=== PATIENT | female | born 1985 | race Caucasian/White ===

== ENCOUNTER 2016-12-24 20:37 | Inpatient (IN) | payer BC ==
[2016-12-24] MEDS: RINGERS SOLUTION,LACTATED 1,000 ML IV ONE (21:50)
[2016-12-24] MEDS ORDERED: LIDOCAINE HCL 50 ML VIAL PERI PRN (22:16)
[2016-12-24] MEDS ORDERED: OXYTOCIN/DEXTROSE 5%-WATER 30 UNITS/500 ML BAG IV ONE (22:16)
[2016-12-24] MEDS ORDERED: ONDANSETRON HCL/PF 2 MG/ML VIAL IV PRN (22:32)
[2016-12-24] MEDS ORDERED: NALOXONE HCL 1 MG/1 ML SYRG IV PRN (22:32)
[2016-12-24] MEDS ORDERED: BUPIVACAINE HCL/PF 30 ML VIAL EP ONE (22:32)
[2016-12-24] MEDS ORDERED: BUPIVACAINE HCL/0.9 % NACL/PF 250 ML EP PRN (22:32)
[2016-12-24] MEDS: DEXTROSE 5%-LACTATED RINGERS 1,000 ML IV PRN (22:56)
--- NOTE | 2016-12-24 23:23 | OR ---
Anesthesia Procedure Note - Anesthesia Procedure Note Date of Service: 12/24/16 Narrative: Vital Signs - Last Taken Temp 36.3 C L 12/24/16 22:58 Pulse 81 12/24/16 22:58 Resp 18 12/24/16 22:58 BP 122/72 12/24/16 22:58 Pulse Ox 100 12/24/16 22:58 12/24/16 23:22 ANESTHESIA PROCEDURE NOTE Date of Procedure: 12/24/2016. Time of procedure: 2300. Performed by: Héctor Tsang CRNA Machine Hoop Maker: None. Preprocedure diagnosis: Active labor. Post procedure diagnosis: Same. Procedure: Insertion of labor epidural. Indications: The patient is a 31 -year-old female in active labor requesting labor epidural for pain management. Findings: See below. Details of the procedure: The patient was placed in a sitting position. DuraPrep as well as Betadine swabs 3 was applied to the patient's back. Patient was then draped in a sterile fashion. Lidocaine 1% was infiltrated to the skin and subcutaneous tissues at the level of the L3 4 interspace. The epidural space was identified using a 18-gauge Tuohy needle with loss-of- resistance technique. Epidural catheter was inserted to a depth of 12 centimeters at skin. Negative test dose was elicited using 3 mL of 1.5% preservative-free lidocaine plus epinephrine 1 200,000. The epidural catheter was then taped and secured in place. A loading dose of 8 mL of 0.25% preservative-free bupivacaine was administered to the epidural catheter after negative aspiration for blood and CSF. EBL: Minimal. Fluids: N/A. Specimen: N/A. Post procedure condition: The patient tolerated the procedure well. No complications were noted. Thank you for this consultation. Héctor Tsang CRNA
[2016-12-25] MEDS: DEXTROSE 5%-LACTATED RINGERS 1,000 ML IV PRN (00:44)
[2016-12-25] MEDS: RINGERS SOLUTION,LACTATED 1,000 ML IV ONE (01:47)
--- NOTE | 2016-12-25 04:31 | OR ---
Operative Report - Dictated Report Narrative: Spontaneous vaginal delivery of viable female at 0408 on 12/25/2016 with Apgars 8 and 9, weighing 3743 g in RICARDO position. Terminal meconium with light meconium-stained amniotic fluid. Cord clamping delayed approximately 1 minute. Placenta delivered complete, intact, with three vessel cord Estimated blood loss: less than 50 ml Lacerations: First-degree vaginal laceration with no repair
[2016-12-25] MEDS ORDERED: BISACODYL 10 MG SUPP.RECT RC PRN (04:33)
[2016-12-25] MEDS ORDERED: HYDROCORTISONE 30 APPL TUBE TP PRN (04:33)
[2016-12-25] MEDS ORDERED: BENZOCAINE/MENTHOL 81 SPRAY CAN TP PRN (04:33)
[2016-12-25] MEDS ORDERED: oxyCODONE HCL/ACETAMINOPHEN 1 TAB TABLET PO PRN (04:33)
[2016-12-25] MEDS ORDERED: GLYCERIN/WITCH HAZEL LEAF 40 APPL BOX TP PRN (04:33)
[2016-12-25] MEDS ORDERED: OXYTOCIN/DEXTROSE 5%-WATER 30 UNITS/500 ML BAG IV ONE (04:33)
[2016-12-25] MEDS ORDERED: SENNOSIDES 8.6 MG TABLET PO PRN (04:33)
[2016-12-25] MEDS ORDERED: DOCUSATE SODIUM 100 MG CAPSULE ONE (07:53)
[2016-12-25] MEDS: IBUPROFEN 800 MG TABLET PO PRN ×2 (07:55→16:38)
[2016-12-25] MEDS: DOCUSATE SODIUM 100 MG CAPSULE PO SCH ×3 (07:56→20:51)
[2016-12-25] MEDS: oxyCODONE HCL/ACETAMINOPHEN 1 TAB TABLET PO PRN ×2 (07:56→13:09)
[2016-12-26] MEDS: IBUPROFEN 800 MG TABLET PO PRN ×2 (07:17→15:38)
[2016-12-26] MEDS: oxyCODONE HCL/ACETAMINOPHEN 1 TAB TABLET PO PRN ×2 (07:18→15:38)
--- NOTE | 2016-12-26 08:58 | PN ---
Progess Note - Interim Narrative: 12/26/16 08:57 progress note Subjective: The patient is doing well. She is ambulating, voiding, tolerating by mouth. She has minimal pain and moderate lochia. Objective: General: No acute distress Abdomen: Soft, nontender, fundus is firm just below the umbilicus Extremities: minimal edema, nontender to palpation Assessment and plan: day 1 Feeding: bottle with pumping Pain: Controlled with by mouth medication Routine care.
[2016-12-26] MEDS: DOCUSATE SODIUM 100 MG CAPSULE PO SCH ×2 (12:16→21:10)
[2016-12-27] MEDS: oxyCODONE HCL/ACETAMINOPHEN 1 TAB TABLET PO PRN ×2 (07:10→15:09)
[2016-12-27] MEDS: IBUPROFEN 800 MG TABLET PO PRN ×2 (07:10→15:10)
--- NOTE | 2016-12-27 09:05 | PN ---
Progess Note - Interim Narrative: 12/27/16 09:03 progress note Subjective: The patient is doing well. She is ambulating, voiding, tolerating by mouth. She has minimal pain and moderate lochia. Objective: General: No acute distress Abdomen: Soft, nontender, fundus is firm just below the umbilicus Extremities: minimal edema, nontender to palpation Assessment and plan: day 2 Feeding: Bottle and pumping Pain: Controlled with by mouth medication control: progesterone only mini pill or condoms with pull-out Routine care.
[2016-12-27] MEDS: DOCUSATE SODIUM 100 MG CAPSULE PO SCH (09:53)
[2016-12-27 13:33] VITALS: BP 128/75
== END 2016-12-27 16:59 | disposition home or self-care (01) | DRG 775 ==
LOC: OBCLINIC 20:37 → OB 20:53
PROVIDERS: ADMIT Obstetrics & Gynecology; ATTEND Obstetrics & Gynecology
PROC: 10E0XZZ Delivery of Products of Conception, External Approach (ICD-10-PCS; principal; 2016-12-25)
PROC: 4A1H7CZ Monitoring of Products of Conception, Cardiac Rate, Via Natural or Artificial Opening (ICD-10-PCS; 2016-12-25)
PROC: 3E0S3CZ (ICD-10-PCS; 2016-12-25)
DX: O48.0 Post-term pregnancy (principal); O77.0 Labor and delivery complicated by meconium in amniotic fluid; O70.0 First degree perineal laceration during delivery; J45.909 Unspecified asthma, uncomplicated; Z3A.41 41 weeks gestation of pregnancy; Z37.0 Single live birth